=== PATIENT | female | born 1965 | race Caucasian/White ===

== ENCOUNTER 2017-09-28 19:47 | Inpatient (IN) | payer MEDICAID, OTHER ==
[~2017-09-28] VITALS: Ht 160 cm; Wt 74.8 kg
--- NOTE | 2017-09-28 19:59 | NUR ---
PT AMBULATORY TO ER BED 4 WITH STEADY GAIT. BIBSON FROM HOME C/O SLURRED SPEECH SINCE 1200 HRS. LKWT WAS 0700HRS. 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 VSS/RESP EVEN UNLABORED/NAD NOTED/SKIN WARM AND DRY/AFEBRILE/DENIES N-V-D/AOX4. AWAITNG MD BURNETT.
[2017-09-28] MEDS ORDERED: IV NS 0.9% 500 ML BAG IV ONE ×2 (20:00→20:30)
--- NOTE | 2017-09-28 20:00 | NUR ---
AT BEDSIDE FOR EVAL.
--- NOTE | 2017-09-28 20:01 | NUR ---
ACTIVATED CODE STROKE
--- NOTE | 2017-09-28 20:03 | NUR ---
DR. BLOCK IS AUTOMATED TELLER MANAGER NEURO FOR TELESTROKE - AWAITING CALL BACK
--- NOTE | 2017-09-28 20:03 | NUR ---
18G IV TO L AC X 1 ATTEMPT USING ASEPTIC TECH, BLOOD HANDED OVER TO THE LAB AT BEDSIDE. IV FLUSHES EASILY WITH NS, NO S/S INFILTRATION NOTED AT THIS TIME.
--- NOTE | 2017-09-28 20:03 | NUR ---
CALLED [facility] TELESTROKE
[2017-09-28] MEDS ORDERED: IOHEXOL-350 100 ML VIAL IV ONE (20:04)
--- NOTE | 2017-09-28 20:05 | NUR ---
PT TO CT VIA STRETCHER ON HOSPITAL SECRETARY WITH RN PER ACLS PROTOCOL. VSS.
--- NOTE | 2017-09-28 20:06 | NUR ---
DR. BLOCK CALLED BACK AND IS SPEAKING WITH DR. MONTES
[2017-09-28 20:09] LABS: BASOPHILS % (AUTO) 0.3 % (0.0-2.0); EOSINOPHILS % (AUTO) 2.4 % (0.0-6.0); HEMATOCRIT 42 % (33-45); HEMOGLOBIN 14.1 g/dL (11.5-14.8); LYMPHOCYTES # (AUTO) 3.3 /CMM (0.8-4.8); MEAN CORPUSCULAR HEMOGLOBIN 28 PG (26.0-33.0); MEAN CORPUSCULAR HGB CONC 33 g/dl (31.0-36.0); MEAN CORPUSCULAR VOLUME 85 fL (82-100); MONOCYTES # (AUTO) 1.1 /CMM (0.1-1.30); MONOCYTES % (AUTO) 8.9 % (2.0-12.0); NEUTROPHILS # (AUTO) 7.2 /CMM (1.8-8.9); NEUTROPHILS % (AUTO) 60.4 % (43.0-81.0); PLATELET COUNT (AUTO) 344 /CMM (150-450); RED BLOOD CELL COUNT(AUTO) 4.96 MIL/uL (4.0-5.2); WHITE BLOOD COUNT (AUTO) 11.9 K/uL (4.3-11.0)
[2017-09-28 20:19] LABS: CALCIUM, SERUM 9.1 mg/dL (8.5-10.1); CARBON DIOXIDE 27 mmol/L (21-32); CHLORIDE 99 mmol/L (98-107); CREATININE 0.6 mg/dL (0.6-1.3); GLUCOSE 325 mg/dL (74-106); POTASSIUM 3.4 mmol/L (3.5-5.1); SODIUM SERUM 133 mmol/L (136-145); UREA NITROGEN, BLOOD 14 mg/dL (7-18)
--- NOTE | 2017-09-28 20:20 | NUR ---
PT BACK FROM CT. VSS.
--- NOTE | 2017-09-28 20:20 | NUR ---
DR. MARRERO ([facility] RADIOLOGIST) CALLED AND SPOKE WITH DR. MONTES
--- NOTE | 2017-09-28 20:23 | NUR ---
Raz albarado in [facility] - 09/28/[address] MARRERO ([facility] RADIOLOGIST) CALLED AND SPOKE WITH DR. MONTES
[2017-09-28 20:25] LABS: ALANINE AMINOTRANSFERASE 28 U/L (12-78); ALBUMIN 3.4 g/dL (3.4-5.0); ALKALINE PHOSPHATASE 113 U/L (46-116); ASPARTATE AMINOTRANSFERASE 17 U/L (15-37); BILIRUBIN,DIRECT 0.1 mg/dL (0.0-0.2); BILIRUBIN,TOTAL 0.2 mg/dL (0.2-1.0); TOTAL PROTEIN, SERUM 8.1 g/dL (6.4-8.2)
[2017-09-28 20:27] LABS: TROPONIN I < 0.017 ng/mL (0.00-0.056)
[2017-09-28 20:37] LABS: INR 0.86 (0.85-1.15)
[2017-09-28 20:42] LABS: CHOLESTEROL 271 mg/dL (<200); HDL CHOLESTEROL 41 mg/dL (40-60); LDL 170 mg/dL (0-99); TRIGLYCERIDES 348 mg/dL (30-150)
--- NOTE | 2017-09-28 20:50 | NUR ---
PT DEFICITS RESOLVED AT THIS TIME. [facility] SCALE OF 0. SEE INTERVENTION STROKE SCALE.
--- NOTE | 2017-09-28 20:56 | NUR ---
PT AMBULATORY TO RESTROOM WITH STEADY GAIT.
[2017-09-28] MEDS ORDERED: METOPROLOL TARTRATE INJ 5 MG/5 ML AMPUL ONE (20:58)
[2017-09-28] MEDS ORDERED: METOPROLOL TARTRATE INJ 5 MG/5 ML AMPUL IV ONE (21:00)
[2017-09-28] MEDS ORDERED: ASPIRIN 325 MG TABLET ONE ×2 (21:07→21:09)
--- NOTE | 2017-09-28 21:08 | NUR ---
PAGED DR. BLOCK AGAIN
--- NOTE | 2017-09-28 21:13 | NUR ---
PT REFUSED ASPIRIN, PT INSTRUCTED ON RISKS OF REFUSING MEDICATION. PT VERBALIZES UNDERSTANDING OF TEACHING.
[2017-09-28] MEDS ORDERED: METF500T6 PO (21:23)
[2017-09-28] MEDS ORDERED: BENA1TAB18 PO (21:24)
[2017-09-28] MEDS ORDERED: AMLO10TA2 PO (21:24)
[2017-09-28] MEDS ORDERED: ASPIRIN 325 MG TABLET PO ONE (21:30)
--- NOTE | 2017-09-28 21:33 | NUR ---
REPORT GIVEN TO NICOLAS BURKS FOR JOSE JUAN.
--- NOTE | 2017-09-28 21:35 | NUR ---
213 REPORT RECEIVED FROM ED NICOLAS [facility] WITH QUESTIONS ANSWERED
--- NOTE | 2017-09-28 21:39 | NUR ---
PT TRANSPORTED TO TELE 114 VIA STRETCHER ON BRUSH HOLDER ASSEMBLER WITH RN PER ACLS PROTOCOL. VSS.
--- NOTE | 2017-09-28 21:40 | NUR ---
2139 ADMITTED FROM ED 52 YEAR OLD FEMALE VIA GURNEY ACCOMPANIED BY NICOLAS DICKERSON AND 2 DAUGHTERS, AAO X4 ABLE TO AMBULATE TO BED WITH STEADY GAIT. ADMITTED WITH DX OF CVA. DENIES PAIN WHEN ASKED. NO NEURO DEFICIT NOTED. LAO SPEAKING ONLY. ADMISSION CARE RENDERED VITAL SIGNS TAKEN ACCORDINGLY. REPORT GIVEN TO NICOLAS FERNANDEZ.
--- NOTE | 2017-09-28 22:05 | NUR ---
2205 ASSISTED TO BATHROOM, VOIDED WITHOUT DIFFICULTY. CALL LIGHT PLACED WITHIN REACH AND INSTRUCTED PATIENT TO CALL FOR ASSISTANCE.
--- NOTE | 2017-09-28 22:22 | NUR ---
2222 HUY GIBBS NOTIFIED OF PT.'S ADMISSION TO UNIT, AWAITING CALL BACK FOR ORDERS.
[2017-09-28 22:30] VITALS: BP 172/80
--- NOTE | 2017-09-28 22:53 | NUR ---
604 CALLED HUY GIBBS AGAIN FOR ORDERS, SHE SAID SHE WILL PUT ADMISSION ORDERS
[2017-09-29] VITALS: BP 155/75
[2017-09-29] MEDS ORDERED: MAGNESIUM HYDROXIDE 30 ML UDC PO PRN
[2017-09-29] MEDS ORDERED: ACETAMINOPHEN 325 MG TABLET PO PRN
[2017-09-29] MEDS ORDERED: Z GUARD REMEDY 2 OZ OINT TP PRN
[2017-09-29] MEDS ORDERED: hydrALAZINE HCL IV 20 MG VIAL IV PRN
[2017-09-29] MEDS ORDERED: HYDROCODONE/APAP 5/325MG 1 EACH TABLET PO PRN
[2017-09-29] MEDS ORDERED: ZOLPIDEM TARTRATE 5 MG TABLET PO PRN
[2017-09-29] MEDS ORDERED: DEXTROSE 50%-WATER 50 ML DISP.SYRIN IV PRN
[2017-09-29] MEDS ORDERED: ONDANSETRON HCL/PF 4 MG/2 ML VIAL IVP PRN
[2017-09-29] MEDS: BLOOD SUGAR DIAGNOSTIC 1 EACH STRIP IN SCH ×2 (00:27→06:21)
[2017-09-29] MEDS: BLOOD SUGAR DIAGNOSTIC 1 EACH STRIP VI SCH ×5 (00:27→21:19)
[2017-09-29] MEDS: ATORVASTATIN 40 MG TABLET PO SCH ×2 (00:29→21:11)
[2017-09-29] MEDS: *INSULIN REGULAR(HUMULIN R)HUM 100 UNIT/ML VIAL SQ PRN ×2 (00:31→21:18)
[2017-09-29 04:00] VITALS: BP 146/69
[2017-09-29 06:12] LABS: BASOPHILS % (AUTO) 0.3 % (0.0-2.0); EOSINOPHILS % (AUTO) 2.9 % (0.0-6.0); HEMATOCRIT 40 % (33-45); HEMOGLOBIN 13.3 g/dL (11.5-14.8); LYMPHOCYTES # (AUTO) 2.8 /CMM (0.8-4.8); LYMPHOCYTES % (AUTO) 25.3 % (20.0-44.0); MEAN CORPUSCULAR HEMOGLOBIN 29 PG (26.0-33.0); MEAN CORPUSCULAR HGB CONC 34 g/dl (31.0-36.0); MEAN CORPUSCULAR VOLUME 87 fL (82-100); MONOCYTES % (AUTO) 8.7 % (2.0-12.0); NEUTROPHILS # (AUTO) 6.9 /CMM (1.8-8.9); NEUTROPHILS % (AUTO) 62.8 % (43.0-81.0); PLATELET COUNT (AUTO) 319 /CMM (150-450); RED BLOOD CELL COUNT(AUTO) 4.54 MIL/uL (4.0-5.2); WHITE BLOOD COUNT (AUTO) 10.9 K/uL (4.3-11.0)
[2017-09-29 06:45] LABS: ALBUMIN 2.8 g/dL (3.4-5.0); BILIRUBIN,TOTAL 0.3 mg/dL (0.2-1.0); CALCIUM, SERUM 8.5 mg/dL (8.5-10.1); CREATININE 0.6 mg/dL (0.6-1.3); MAGNESIUM 1.6 mg/dL (1.8-2.4); PHOSPHORUS 3.4 mg/dL (2.5-4.9); POTASSIUM 3.4 mmol/L (3.5-5.1); TOTAL PROTEIN, SERUM 7.1 g/dL (6.4-8.2)
[2017-09-29 06:47] LABS: THYROID STIMULATING HORMONE 1.695 uIU/mL (0.358-3.74)
--- NOTE | 2017-09-29 07:15 | NUR ---
LAMINATOR PRINTED CIRCUIT BOARDS INITIAL NOTES RECEIVED REPORT AND PATIENT FROM PM NURSE. PT A&OX4 SYRIAN AND ROMANIAN SPEAKING, ON TELE MON SINUS RYTHME HEART RATE 93, ON ROOM AIR SATURATION ABOVE 97%, NO SOB OR ACUTE DISTRESS NOTED, LEFT UPPER ARM IV SITE INTACT AND PATENT, ALL NEEDS AND SAFETY MEASURES INITIATED, WILL CONTINUE TO MONITOR.
[2017-09-29 08:00] VITALS: BP 154/76
[2017-09-29] MEDS: ASPIRIN 81 MG TAB.CHEW PO SCH (08:26)
[2017-09-29] MEDS: BENAZEPRIL HCL 20 MG TABLET PO SCH (08:26)
[2017-09-29] MEDS: HYDROCHLOROTHIAZIDE 25 MG TABLET PO SCH (08:26)
[2017-09-29] MEDS: INSULIN REGULAR, HUMAN 100 UNIT/ML 3 ML VIAL SQ PRN ×3 (09:13→17:26)
[2017-09-29] MEDS: POTASSIUM CHLORIDE 20 MEQ TAB.PRT.SR PO SCH ×2 (10:44→12:21)
[2017-09-29] MEDS: Magnesium 1GM/D5W 100ML PREMIX 100 ML IV SCH ×2 (10:45→11:30)
[2017-09-29 12:00] VITALS: BP_SYST 172; BP_SYST 178; BP_DIAS 78
[2017-09-29] MEDS ORDERED: MAGNESIUM OXIDE 400 MG TABLET PO SCH (13:00)
[2017-09-29] MEDS ORDERED: MAGNESIUM OXIDE 400 MG TABLET PO ONE (13:00)
--- NOTE | 2017-09-29 13:01 | NUR ---
STEAM BOX HAND NOTES PTS IV INFILTRATED TRIED SEVERALC ATTEMPTS WITH ANOTHER NURSE, PT NOW REFUSES IV INSERTION, CHARLIE SOLITARIO AWARE.
[2017-09-29 16:00] VITALS: BP 143/71
--- NOTE | 2017-09-29 18:36 | NUR ---
ASSISTANT SPA MANAGER ENDING NOTES PT STABLE WITH NO ACUTE CHANGES NOTED, ALL DUE MEDS GIVEN AND ALL NEEDS MET, PT REFUSES IV INSERTION NOTIFIED ORA SOLITARIO DNP ALREADY, PT IS VERY HARD STICK AFTER MANY ATTEMPTS PT REFUSES, WILL CONTINUE CARE AND ENDORSE TO PM NURSE.
[2017-09-29 20:00] VITALS: BP 155/84
[2017-09-30] VITALS: BP 146/69
[2017-09-30 00:09] VITALS: BP 146/69
[2017-09-30 04:00] VITALS: BP 135/64
--- NOTE | 2017-09-30 07:00 | NUR ---
RN NOTES RECEIVED PT ON BED, A/Ox4, ON RA , RESPIRATION EVEN AND UNLABORED, NO NEUROLOGICAL DEFICIT NOTED, ON TELE HR IN 70'S , SR , PT REFUSED TO HAVE A SALINE LOCK AT THIS TIME, SR UP x3, CALL LIGHT WITHIN EASY REACH . BED LOCKED AND IN LOWEST POSITION , CONTINUE TO MONITOR .
[2017-09-30] MEDS: INSULIN REGULAR, HUMAN 100 UNIT/ML 3 ML VIAL SQ PRN ×2 (07:52→12:00)
[2017-09-30] MEDS: BLOOD SUGAR DIAGNOSTIC 1 EACH STRIP VI SCH ×2 (07:52→12:00)
[2017-09-30 08:00] VITALS: BP 141/66
[2017-09-30] MEDS: ASPIRIN 81 MG TAB.CHEW PO SCH (08:18)
[2017-09-30] MEDS: HYDROCHLOROTHIAZIDE 25 MG TABLET PO SCH (08:18)
[2017-09-30 08:19] VITALS: BP 141/66
[2017-09-30] MEDS: BENAZEPRIL HCL 20 MG TABLET PO SCH (08:19)
[2017-09-30] MEDS ORDERED: ATOR40TA PO (11:23)
[2017-09-30] MEDS ORDERED: ASPI-1152 PO (11:23)
--- NOTE | 2017-09-30 11:50 | NUR ---
Optical Lab Technician consult was requested by Dr. Hernandez for stroke. Patient is a Dutch speaking 52 year old female who was admitted to [facility] for stroke. SW is bilingual. Pt reported that her emergency contact is her , Joe ([phone]), and will drive her home upon discharge from the hospital. The patient lives with her and 3 adult children at [address] [place] [address] # [address] [place] [address]. Patient was alert and oriented x4. Pt reported that she has never had home health in the past. Pt denied prior dialysis output. Pt reported to that this was the first stroke she has ever had. Pt reported that she has a history of high blood pressure and diabetes. Pt denied symptoms of depression, anxiety or any other psychological distress. No manager social needed. SW available if needed.
--- NOTE | 2017-09-30 13:00 | NUR ---
RN NOTES DISCHARGE INSTRUCTION GIVEN TO PATIENT BY CHAPIN CHARGE NURSE , PT LEFT THE FLOOR TO MAIN ENTRANCE IN STABLE CONDITION .
== END 2017-09-30 13:18 | disposition home or self-care (01) | DRG 47 ==
LOC: ER 19:47 → TELE1 21:44
PROVIDERS: ADMIT Nurse Practitioner Acute Care; ATTEND Nurse Practitioner Acute Care
DX: G45.9 Transient cerebral ischemic attack, unspecified (principal); G93.40 Encephalopathy, unspecified; E11.65 Type 2 diabetes mellitus with hyperglycemia; E87.1 Hypo-osmolality and hyponatremia; I10 Essential (primary) hypertension; E78.5 Hyperlipidemia, unspecified; E87.6 Hypokalemia; Z79.84 Long term (current) use of oral hypoglycemic drugs; E83.42 Hypomagnesemia; T50.2X5A Adverse effect of carbonic-anhydrase inhibitors, benzothiadiazides and other diuretics, initial encounter; Y92.009 Unspecified place in unspecified non-institutional (private) residence as the place of occurrence of the external cause
CPT/HCPCS: 36415; 70450-TC; 70496-TC; 70498-TC; 71045-TC; 80048-TC; 80053-TC; 80061-TC; 80076-TC; 82962-TC; 83735-TC; 83880; 84100-TC; 84443-TC; 84484-TC; 85025-TC; 85652-TC; 85730-TC; 87081-TC; 92611-TC; 93307-TC; A4606; J1815; J3475; J3490; J7030; J7040; Q9967; Z7610

== ENCOUNTER 2020-02-04 09:30 | Emergency (ER) | payer MEDICAID, OTHER ==
[~2020-02-04] VITALS: Ht 160 cm; Wt 79.8 kg
[~2020-02-04 09:30] MED LIST: AMLO-213 PO; ASPI-1420 PO; ATOR40TA PO; BENA1TAB18 PO; METF-440 PO
[2020-02-04] MEDS ORDERED: IV NS 0.9% 1,000 ML BAG IV ONE ×2 (10:30→13:30)
[2020-02-04] MEDS ORDERED: KETOROLAC TROMETHAMINE INJ 30 MG/ML VIAL IV ONE (10:30)
[2020-02-04] MEDS ORDERED: ONDANSETRON HCL/PF 4 MG/2 ML VIAL IVP ONE (10:30)
[2020-02-04 10:48] LABS: BASOPHILS # (AUTO) 0.1 /CMM (0.0-0.2); BASOPHILS % (AUTO) 0.4 % (0.0-2.0); EOSINOPHILS % (AUTO) 0.1 % (0.0-6.0); HEMATOCRIT 45 % (33-45); HEMOGLOBIN 14.9 g/dL (11.5-14.8); LYMPHOCYTES # (AUTO) 1.4 /CMM (0.8-4.8); LYMPHOCYTES % (AUTO) 7.4 % (20.0-44.0); MEAN CORPUSCULAR HGB CONC 33 g/dl (31.0-36.0); MEAN CORPUSCULAR VOLUME 87 fL (82-100); MONOCYTES # (AUTO) 0.5 /CMM (0.1-1.30); MONOCYTES % (AUTO) 2.7 % (2.0-12.0); NEUTROPHILS # (AUTO) 16.6 /CMM (1.8-8.9); NEUTROPHILS % (AUTO) 89.4 % (43.0-81.0); PLATELET COUNT (AUTO) 328 /CMM (150-450); RED BLOOD CELL COUNT(AUTO) 5.16 MIL/uL (4.0-5.2); WHITE BLOOD COUNT (AUTO) 18.5 K/uL (4.3-11.0)
[2020-02-04] MEDS ORDERED: ONDANSETRON HCL/PF 4 MG/2 ML VIAL ONE (10:56)
[2020-02-04] MEDS ORDERED: KETOROLAC TROMETHAMINE 15 MG/ML VIAL ONE (10:56)
[2020-02-04 11:12] LABS: ALBUMIN 3.4 g/dL (3.4-5.0); BILIRUBIN,DIRECT 0.2 mg/dL (0.0-0.2); BILIRUBIN,TOTAL 0.5 mg/dL (0.2-1.0); CALCIUM, SERUM 9.1 mg/dL (8.5-10.1); CREATININE 0.7 mg/dL (0.6-1.3); POTASSIUM 3.9 mmol/L (3.5-5.1); TOTAL PROTEIN, SERUM 8.6 g/dL (6.4-8.2)
[2020-02-04 11:19] LABS: BILIRUBIN,URINE NEGATIVE (NEGATIVE); BLOOD, URINE SMALL Ery/uL (NEGATIVE); COLOR,URINE YELLOW (YELLOW); LEUKOCYTE ESTERASE ,URINE NEGATIVE (NEGATIVE); NITRITE, URINE NEGATIVE (NEGATIVE); PROTEIN,URINE >=300 mg/dl (NEGATIVE); UGLUCOSE >=1000 mg/dL (NEGATIVE); UROBILINOGEN,URINE 0.2 EU/dL (0.2)
[2020-02-04] MEDS ORDERED: PIPERACILLIN /TAZOBACTAM 3.375 G in IV D5W 50 ML IV ONE (11:30)
[2020-02-04 11:41] LABS: BACTERIA,URINE Moderate /HPF (None Seen); SQUAMOUS EPITHELIAL CELL,UR Few /HPF (None Seen); WBC,URINE 0-2 /HPF (0-3); YEAST,URINE Few /HPF (None Seen)
--- NOTE | 2020-02-04 13:43 | NUR ---
SIDNEY CRUZ DR. ACCEPTED PATIENT. AWAITING COVID RESULT AND TRANSFER INFO.
--- NOTE | 2020-02-04 14:24 | NUR ---
viviane rios from [facility] requesting for covid test result once available. phone # [phone] fax # [phone]
--- NOTE | 2020-02-04 15:24 | NUR ---
CALL FROM LAB: COVID NEGATIVE
--- NOTE | 2020-02-04 18:00 | NUR ---
PATIENT RESTING, NO DISTRESS NOTED.
[2020-02-04] MEDS ORDERED: BENAZEPRIL HCL 10 MG TABLET ONE (18:39)
[2020-02-04] MEDS ORDERED: IBUPROFEN 600 MG TABLET ONE (18:39)
--- NOTE | 2020-02-04 18:39 | NUR ---
PATIENT C/O HEADACHE. INFORMED DR. HALL.
[2020-02-04] MEDS ORDERED: BENAZEPRIL HCL 10 MG TABLET PO ONE (19:00)
[2020-02-04] MEDS ORDERED: IBUPROFEN 600 MG TABLET PO ONE (19:00)
--- NOTE | 2020-02-04 19:02 | NUR ---
RECIEVED A CALL FROM JAMMIE FROM [facility]. PT WILL BE GOING TO ROOM 3304. NUMBER FOR REPORT. [phone].
--- NOTE | 2020-02-04 19:21 | NUR ---
IV removed. Catheter intact and site benign. Pressure and 4x4 applied to site. No bleeding noted.
--- NOTE | 2020-02-04 19:21 | NUR ---
Patient does not wish to proceed with medical care recommended by Dr. Briggs. Patient given information related to possible complications, up to and including , which could occur as a result of leaving the hospital at this time. Patient verbalizes understanding of risks involved due to leaving against medical advice. Patient has signed AMA form. Pt provided with labs and ct results.
[2020-02-04 19:22] VITALS: BP 151/79
== END 2020-02-04 19:22 | disposition left against medical advice (07) ==
LOC: ER 09:40
DX: K80.50 Calculus of bile duct without cholangitis or cholecystitis without obstruction (principal); D72.829 Elevated white blood cell count, unspecified; E11.65 Type 2 diabetes mellitus with hyperglycemia; Z79.84 Long term (current) use of oral hypoglycemic drugs; I10 Essential (primary) hypertension; Z79.899 Other long term (current) drug therapy; Z79.82 Long term (current) use of aspirin; Z20.828 Contact with and (suspected) exposure to other viral communicable diseases; K44.9 Diaphragmatic hernia without obstruction or gangrene; K43.9 Ventral hernia without obstruction or gangrene; K57.90 Diverticulosis of intestine, part unspecified, without perforation or abscess without bleeding
CPT/HCPCS: 36415; 71045; 74176; 80048; 80076; 81001; 83690; 85025; 87086; 87426; 96361; 96365; 96375; 99285; C9803; J1885; J2405; J2543; J7030 ×2; J7060

== ENCOUNTER 2021-11-03 08:52 | Emergency (ER) | payer MEDICAID, OTHER ==
[~2021-11-03] VITALS: Ht 162.6 cm; Wt 72.1 kg
--- NOTE | 2021-11-03 09:13 | NUR ---
DR JIMENES AT BEDSIDE W/ PT.
[2021-11-03] MEDS ORDERED: BENA40TA8 PO (09:14)
[2021-11-03 09:17] VITALS: BP 143/78
--- NOTE | 2021-11-03 09:17 | NUR ---
Patient discharged to home in stable condition. Written and verbal after care instructions given. Patient verbalizes understanding of instruction.
== END 2021-11-03 09:18 | disposition home or self-care (01) ==
LOC: ER 09:00
DX: I10 Essential (primary) hypertension (principal); E11.9 Type 2 diabetes mellitus without complications; Z79.899 Other long term (current) drug therapy